=== PATIENT | female | born 1955 | race Caucasian/White ===

== ENCOUNTER 2019-10-23 12:16 | Emergency (ER) | payer OTHER ==
[2019-10-23 13:29] LABS: Basophils % 0.4 % (0-1.3); Hematocrit 33.8 % (36.0-45.0); Lymphocytes % 15.4 % (15.3-44.8); MPV 7.1 fL (7.6-11.3); Protime INR 1.04; RBC Red Blood Cell Count 3.79 M/uL (3.86-4.86)
[2019-10-23 14:16] LABS: ALT/SGPT 33 U/L (12-78); AST/SGOT 20 U/L (15-37); Albumin 3.7 g/dL (3.4-5.0); Alkaline Phosphatase 96 U/L (45-117); BUN Blood Urea Nitrogen 16 mg/dL (7-18); Bicarbonate 24 mmol/L (21-32); Bilirubin Direct 0.1 mg/dL (0-0.2); Bilirubin Total 0.4 mg/dL (0.2-1.0); Glucose Level 114 mg/dL (74-106); Magnesium 2.1 mg/dL (1.8-2.4); NT PRO-BNP 169 pg/mL (<125); Potassium 3.6 mmol/L (3.5-5.1); Protein, Total 7.7 g/dL (6.4-8.2); Sodium Level 141 mmol/L (136-145); Troponin (Emerg Dept Use Only) < 0.02 ng/mL (0.0-0.045)
--- NOTE | 2019-10-23 14:44 | RAD REPORT ---
EXAM DESCRIPTION: CT - Chest For Pe Angio - 10/23/2019 2:36 pm CLINICAL HISTORY: Chest pain COMPARISON: None. TECHNIQUE: Dynamically enhanced axial 3 mm thick images of the chest were obtained during administra tion of <100> mL Isovue 370 IV contrast. Coronal and oblique reconstruction images were generated and reviewed. Exam utilizes a protocol for optimal evaluation of pulmonary arterial tree. Maximum intensity projections 3D imaging was utilized All CT scans are performed using dose optimization technique as appropriate and may include automated exposure control or mA/KV adjustment according to patient size. FINDINGS: A pulmonary embolus is not seen. A thoracic aortic aneurysm is not noted. A pleural effusion is not seen. A pericardial effusion is not seen. A lung consolidation is not present. An area of scarring is present within the left lower lobe. IMPRESSION: Negative for a pulmonary embolism.
--- NOTE | 2019-10-23 14:54 | ER ---
Nurse's Notes [facility] Name: Hope Thurston Age: 64 yrs Sex: Female : 1955 Arrival Date: 10/23/2019 Time: 12:18 Bed 14 Private MD: Parish Perry Diagnosis: Shortness of breath Presentation: 10/23 12:26 Presenting complaint: Productive cough and worsening SOB x [address] Perry last week, had steroid shot, completed Levaquin this morning, still on Prednisone and albuterol inh. Transition of care: patient was not received from another setting of care. Onset of symptoms was September 30, 2019. Risk Assessment: Do you want to hurt yourself or someone else? Patient reports no desire to harm self or others. Care prior to arrival: None. 12:26 Method Of Arrival: Ambulatory 12:26 Acuity: ADRIANNA 3 hb 12:30 Initial Sepsis Screen: Does the patient meet any 2 criteria? No. Patient's initial bp sepsis screen is negative. Does the patient have a suspected source of infection? No. Patient's initial sepsis screen is negative. Triage Assessment: 12:30 General: Appears in no apparent distress. comfortable, Behavior is calm, cooperative, bp appropriate for age. Pain: Denies pain. EENT: No deficits noted. Neuro: No deficits noted. Cardiovascular: No deficits noted. Respiratory: Reports shortness of breath Onset: The symptoms/episode began/occurred at an unknown time. the patient reports symptoms have resolved. GI: No signs and/or symptoms were reported involving the gastrointestinal system. : No signs and/or symptoms were reported regarding the genitourinary system. Derm: No deficits noted. Musculoskeletal: No deficits noted. Historical: - Allergies: 12:29 Codeine; hb 12:29 Ibuprofen; hb 12:29 minocycline HCl; hb 12:29 PENICILLINS; hb - Home Meds: 12:29 lovastatin 20 mg Oral tab 1 tab once daily [Active]; Prevacid 30 mg Oral cpDR 1 cap hb once daily [Active]; - PSHx: 12:29 ; tendon repair; hb - Immunization history:: Adult Immunizations up to date. - Coronavirus screen:: The patient has NOT traveled to [place] in the past 14 days. The patient has NOT had contact with known/suspected case of Coronavirus? Proceed with normal triage procedures. - Social history:: Patient/guardian denies using alcohol, street drugs, The patient lives with family, with spouse, Smoking status: Patient denies any tobacco usage or history of. - Family history:: not pertinent. - Ebola Screening: : No symptoms or risks identified at this time. Screenin:30 Abuse screen: Denies threats or abuse. Denies injuries from another. Nutritional bp screening: No deficits noted. Tuberculosis screening: No symptoms or risk factors identified. Fall Risk None identified. Assessment: 12:30 General: SEE TRIAGE NOTE. bp 13:14 Reassessment: CT PENDING. Pain: Denies pain. Cardiovascular: Rhythm is sinus rhythm. bp Respiratory: Airway is patent Respiratory effort is even, unlabored, Breath sounds are clear bilaterally. 14:20 Reassessment: CT PENDING. VS STABLE ON MONITOR. bp 15:26 Reassessment: PT D/C HOME AMBULATORY WITH FAMILY, DX WITH DYSPNEA. bp Vital Signs: 12:28 BP 186 / 109; Pulse 102; Resp 18; Temp 98.3; Pulse Ox 100% on R/A; Weight 79.38 kg; hb Height 5 ft. 3 in. (160.02 cm); Pain 0/10; 13:14 BP 161 / 87; Pulse 95; Resp 16; Pulse Ox 97% ; bp 14:19 BP 138 / 83; Pulse 88; Resp 16; Pulse Ox 97% ; bp 15:26 BP 141 / 75; Pulse 82; Resp 16; Temp 98; Pulse Ox 97% ; bp 12:28 Body Mass Index 31.00 (79.38 kg, 160.02 cm) hb ED Course: 12:18 Patient arrived in ED. rg4 12:20 Parish Perry MD is Private Physician. rg4 12:28 Triage completed. hb 12:28 Arm band placed on. hb 12:30 Patient has correct armband on for positive identification. Bed in low position. Call bp light in reach. Side rails up X2. 12:31 Leon Flowers, RONDA is Primary Nurse. bp 12:32 Rita Khan MD is Attending Physician. ma2 13:10 Inserted saline lock: 22 gauge in right antecubital area, using aseptic technique. bp Blood collected. 13:31 Radiology exam delayed due to lab results not completed at this time. (BUN/Creatinine). 2 14:40 CT Chest For PE Angio In Process Unspecified. EDMS 15:26 No provider procedures requiring assistance completed. IV discontinued, intact, bp bleeding controlled, No redness/swelling at site. Pressure dressing applied. Administered Medications: No medications were administered Outcome: 14:54 Discharge ordered by . ma2 15:26 Discharged to home ambulatory, with family. bp 15:26 Condition: stable 15:26 Discharge instructions given to patient, Instructed on discharge instructions, follow up and referral plans. Demonstrated understanding of instructions, follow-up care. 15:28 Patient left the ED. bp Signatures: Dispatcher [employer] EDMS Lois Hope RN RN hb Garcia, Rubi 4 Debbie Hart 2 Leon Flowers, RONDA RN Rita Ferrell MD MD [facility]
--- NOTE | 2019-10-23 14:55 | EDPHYS ---
Physician Documentation [facility] Name: Hope Thurston Age: 64 yrs Sex: Female : 1955 Arrival Date: 10/23/2019 Time: 12:18 Bed 14 Private MD: Parish Perry ED Physician Rita Khan HPI: 10/23 14:22 This 64 yrs old Female presents to ER via Ambulatory with complaints of ma2 Cough, Breathing Difficulty. 14:22 Onset: The symptoms/episode began/occurred gradually, 2 week(s) ago. Severity of ma2 symptoms: At their worst the symptoms were mild, in the emergency department the symptoms are unchanged. Associated signs and symptoms: Pertinent negatives: ear ache, nausea, vomiting. The patient has not experienced similar symptoms in the past, The patient has experienced similar episodes in the past, multiple times. Historical: - Allergies: 12:29 Codeine; hb 12:29 Ibuprofen; hb 12:29 minocycline HCl; hb 12:29 PENICILLINS; hb - Home Meds: 12:29 lovastatin 20 mg Oral tab 1 tab once daily [Active]; Prevacid 30 mg Oral cpDR 1 cap hb once daily [Active]; - PSHx: 12:29 ; tendon repair; hb - Immunization history:: Adult Immunizations up to date. - Coronavirus screen:: The patient has NOT traveled to [place] in the past 14 days. The patient has NOT had contact with known/suspected case of Coronavirus? Proceed with normal triage procedures. - Social history:: Patient/guardian denies using alcohol, street drugs, The patient lives with family, with spouse, Smoking status: Patient denies any tobacco usage or history of. - Family history:: not pertinent. - Ebola Screening: : No symptoms or risks identified at this time. ROS: 14:22 Constitutional: Negative for fever, chills, and weight loss. ma2 14:22 All other systems are negative. Exam: 14:22 Constitutional: This is a well developed, well nourished patient who is awake, alert, ma2 and in no acute distress. Head/Face: Normocephalic, atraumatic. Eyes: Pupils equal round and reactive to light, extra-ocular motions intact. Lids and lashes normal. Conjunctiva and sclera are non-icteric and not injected. Cornea within normal limits. Periorbital areas with no swelling, redness, or edema. ENT: Nares patent. No nasal discharge, no septal abnormalities noted. Tympanic membranes are normal and external auditory canals are clear. Oropharynx with no redness, swelling, or masses, exudates, or evidence of obstruction, uvula midline. Mucous membranes moist. Neck: Trachea midline, no thyromegaly or masses palpated, and no cervical lymphadenopathy. Supple, full range of motion without nuchal rigidity, or vertebral point tenderness. No Meningismus. Chest/axilla: Normal chest wall appearance and motion. Nontender with no deformity. No lesions are appreciated. Cardiovascular: Regular rate and rhythm with a normal S1 and S2. No gallops, murmurs, or rubs. Normal PMI, no JVD. No pulse deficits. Respiratory: Lungs have equal breath sounds bilaterally, clear to auscultation and percussion. No rales, rhonchi or wheezes noted. No increased work of breathing, no retractions or nasal flaring. Abdomen/GI: Soft, non-tender, with normal bowel sounds. No distension or tympany. No guarding or rebound. No evidence of tenderness throughout. MS/ Extremity: Pulses equal, no cyanosis. Neurovascular intact. Full, normal range of motion. Neuro: Awake and alert, GCS 15, oriented to person, place, time, and situation. Cranial nerves II-XII grossly intact. Motor strength 5/5 in all extremities. Sensory grossly intact. Cerebellar exam normal. Normal gait. Vital Signs: 12:28 BP 186 / 109; Pulse 102; Resp 18; Temp 98.3; Pulse Ox 100% on R/A; Weight 79.38 kg; hb Height 5 ft. 3 in. (160.02 cm); Pain 0/10; 13:14 BP 161 / 87; Pulse 95; Resp 16; Pulse Ox 97% ; bp 14:19 BP 138 / 83; Pulse 88; Resp 16; Pulse Ox 97% ; bp 15:26 BP 141 / 75; Pulse 82; Resp 16; Temp 98; Pulse Ox 97% ; bp 12:28 Body Mass Index 31.00 (79.38 kg, 160.02 cm) hb MDM: 12:32 Patient medically screened. ma2 14:22 Differential Diagnosis: Bronchitis Influenza Upper Respiratory Infection. Data ma2 reviewed: vital signs, nurses notes. Counseling: I had a detailed discussion with the patient and/or guardian regarding: the historical points, exam findings, and any diagnostic results supporting the discharge/admit diagnosis, the presence of at least one elevated blood pressure reading (>120/80) during this emergency department visit, the need for outpatient follow up. Response to treatment: the patient's symptoms have mildly improved after treatment. ED course: she took levaquin for 1 week, still have some congestion . 10/23 12:45 Order name: Basic Metabolic Panel; Complete Time: 14:10/23 12:45 Order name: CBC with Diff; Complete Time: 14:10/23 12:45 Order name: LFT's; Complete Time: 14:10/23 12:45 Order name: Magnesium; Complete Time: 14:10/23 12:45 Order name: NT PRO-BNP; Complete Time: 14:10/23 12:45 Order name: PT-INR; Complete Time: 14:10/23 12:45 Order name: Troponin (emerg Dept Use Only); Complete Time: 14:22 10/23 12:45 Order name: EKG; Complete Time: 12:47 10/23 12:45 Order name: Cardiac monitoring; Complete Time: 13:01 10/23 12:45 Order name: EKG - Nurse/Tech; Complete Time: 13:01 10/23 12:45 Order name: IV Saline Lock; Complete Time: 13:13 10/23 12:45 Order name: Labs collected and sent; Complete Time: 13:13 10/23 12:45 Order name: O2 Per Protocol; Complete Time: 12:50 10/23 12:45 Order name: CT Chest For PE Angio 10/23 12:45 Order name: O2 Sat Monitoring; Complete Time: 12:50 10/23 13:30 Order name: Labs - recollect needed: recollect c7; Complete Time: 13:37 bd Administered Medications: No medications were administered Disposition: 10/23/19 14:54 Discharged to Home. Impression: Shortness of breath. - Condition is Stable. - Discharge Instructions: Shortness of Breath, [id number]. - Medication Reconciliation Form, Thank You Letter, Antibiotic Education, Prescription Opioid Use form. - Follow up: Private Physician; When: Tomorrow; Reason: If symptoms return, Continuance of care. Signatures: Dispatcher [employer] EDMS Mccarthyjuany NancyLois Conley, RN RN Leon Galeana RN RN bp Rita Khan MD MD ma2 Corrections: (The following items were deleted from the chart) 15:28 14:54 10/23/2019 14:54 Discharged to Home. Impression: Shortness of breath. Condition bp is Stable. Forms are Medication Reconciliation Form, Thank You Letter, Antibiotic Education, Prescription Opioid Use. Follow up: Private Physician; When: Tomorrow; Reason: If symptoms return, Continuance of care. ma2
--- NOTE | 2019-10-23 16:03 | EKG ---
Test Date: 2019-10-23 Test Time: 13:02:58 Box Covering Machine Operator: MANNY MEASUREMENT RESULTS: Intervals: Rate: 102 [place]: 114 QRSD: 78 QT: 334 QTc: 435 [place]: P: 64 [place]: 114 QRS: 59 T: 37 INTERPRETIVE STATEMENTS: Sinus tachycardia Otherwise normal ECG Compared to ECG 08/05/2016 09:56:02 Sinus rhythm no longer present Electronically Signed On 10-23-19 16:02:25 ASSOCIATE PRODUCT INTEGRITY ENGINEER by Hans Nova
[2019-10-23 17:05] VITALS: O2SAT 97
[2019-10-23 17:08] VITALS: BP 141/75; TEMP 98
== END 2019-10-23 15:28 | disposition home or self-care (01) ==
LOC: ER 12:16
DX: R06.02 Shortness of breath (principal); Z88.0 Allergy status to penicillin; Z88.5 Allergy status to narcotic agent; Z88.6 Allergy status to analgesic agent; Z88.8 Allergy status to other drugs, medicaments and biological substances
CPT/HCPCS: 93005; 85025; 80048; 36415; 83735; 85610; 80076; 84484; 83880; 71275; 99284; Q9967